=== PATIENT | male | born 1965 | race African-American/Black ===

== ENCOUNTER → 2021-02-22 | Outpatient (CLI) | payer OTHER ==
[~2021-02-22] MED LIST: CHLORTHALIDONE25 MG PO; ERTAPENEM1 GM IV; HUMIRA CRO40 MG/0.8 SUBQ; VANC750 IV
[2021-02-22 11:15] VITALS: BP 138/87
[2021-02-22 11:31] VITALS: BP 138/87
--- NOTE | 2021-02-22 11:34 | NUR ---
HERE FOR PICC LINE DRESSING CHANGE ONLY. TRANSITIONING FROM [facility] TO [facility] FOR PICC BEEF PLUCK TRIMMER AND LABS. NO LABS NEEDED TODAY PER DR. FERNANDEZ--DONE IN HIS OFFICE THIS WEEK. PT LOOKS WELL, REPORTS FEELING WELL. DENIES N/V/DIARRHEA OR ANY CONCERNS. SLIGHT SWELLING NOTED RIGHT HAND, LIMITED ABILITY TO BEND RIGHT INDEX FINGER. BANDAGE ON FINGERTIP D/I. PT SEEING HIS HAND DOCTOR ON THURSDAY OF NEXT WEEK AND DR. FERNANDEZ ON THU. SCHEDULED PT TO RETURN HERE AGAIN ON SO LABS CAN BE DRAWN PRIOR TO THOSE APPTS. PT IS HOLDING HIS HUMIRA WHILE CLEARING THIS INFECTION. ANTIICPATED LENGTH OF ANTIBIOTIC TREATMENT IS 6 WEEKS PER PT. ENCOURAGED PT TO LET DR. DUNN (GI DOC ORDERING HUMIRA) ABOUT HIS CURRENT CONDITION.
== END ==
LOC: LAB 10:07 → OPONC 10:07
PROVIDERS: ATTEND Specialist
DX: M25.441 Effusion, right hand (principal)
CPT/HCPCS: 91024

== ENCOUNTER → 2021-02-26 | Outpatient (CLI) | payer OTHER ==
[2021-02-26 10:46] LABS: ABSOLUTE NEUTROPHILS 3.9 thou/uL (1.4-8.2); BASOPHILS 1.3 % (0.0-2.0); EOSINOPHILS 3.6 % (0.0-3.0); HEMATOCRIT 34.2 % (42.0-52.0); HEMOGLOBIN 11.2 gm/dL (14.0-18.0); LYMPHOCYTES 29.8 % (24.0-44.0); MCH 27.7 pg (26.0-34.0); MCHC 32.7 g/dL (28.0-37.0); MCV 84.8 fL (80.0-100.0); MONOCYTES 9.9 % (1.0-8.0); PLATELET COUNT 222 thou/uL (150-400); POLYS 55.4 % (36.0-66.0); RBC 4.03 mil/uL (4.50-6.00)
--- NOTE | 2021-02-26 11:02 | NUR ---
PT HERE FOR WEEKLY PICC DRESSING CHANGE AND LAB DRAW. LEONOR PICC LINE FLUSHES AND ASPIRATES WELL. LABS DRAWN AND AWAITING RESULTS. WILL FAX TO [facility], AND SHAUN WHEN RESULTED. PICC DRESSING CHANGED PER PROTOCOL WITH NO COMPLICATIONS. PT SCHEDULED TO RETURN NEXT WEEK. LEFT UNIT IN STABLE CONDITION.
[2021-02-26 11:07] LABS: ALBUMIN 3.7 g/dL (3.4-5.0); CALCIUM 9.1 mg/dL (8.5-10.1); CREATININE 1.3 mg/dL (0.7-1.3); POTASSIUM 3.8 mmol/L (3.5-5.1); TOTAL BILIRUBIN 0.6 mg/dL (0.2-1.0); TOTAL PROTEIN 8.5 g/dL (6.4-8.2)
== END ==
LOC: OPONC 09:00
PROVIDERS: ATTEND Specialist
DX: M86.8X4 Other osteomyelitis, hand (principal)

== ENCOUNTER → 2021-03-05 | Outpatient (CLI) | payer OTHER ==
[2021-03-05 11:16] LABS: ABSOLUTE NEUTROPHILS 3.4 thou/uL (1.4-8.2); BASOPHILS 1.2 % (0.0-2.0); HEMATOCRIT 34.3 % (42.0-52.0); HEMOGLOBIN 10.8 gm/dL (14.0-18.0); LYMPHOCYTES 27.7 % (24.0-44.0); MCH 27.4 pg (26.0-34.0); MCHC 31.6 g/dL (28.0-37.0); MCV 86.7 fL (80.0-100.0); MONOCYTES 10.4 % (1.0-8.0); PLATELET COUNT 188 thou/uL (150-400); POLYS 55.7 % (36.0-66.0); RBC 3.96 mil/uL (4.50-6.00); RDW 14.9 % (10.5-14.5); WBC 6.2 thou/uL (4.0-11.0)
[2021-03-05 11:24] LABS: ALBUMIN 3.6 g/dL (3.4-5.0); CALCIUM 9.3 mg/dL (8.5-10.1); CREATININE 1.3 mg/dL (0.7-1.3); POTASSIUM 3.6 mmol/L (3.5-5.1); TOTAL BILIRUBIN 0.6 mg/dL (0.2-1.0); TOTAL PROTEIN 8.2 g/dL (6.4-8.2)
== END ==
LOC: OPONC 13:14
PROVIDERS: ATTEND Specialist
DX: M86.8X4 Other osteomyelitis, hand (principal)

== ENCOUNTER → 2021-03-12 | Outpatient (CLI) | payer OTHER ==
[2021-03-12 10:53] LABS: ABSOLUTE NEUTROPHILS 3.3 thou/uL (1.4-8.2); BASOPHILS 1.1 % (0.0-2.0); EOSINOPHILS 3.9 % (0.0-3.0); HEMATOCRIT 33.3 % (42.0-52.0); HEMOGLOBIN 10.5 gm/dL (14.0-18.0); LYMPHOCYTES 27.3 % (24.0-44.0); MCH 27.4 pg (26.0-34.0); MCHC 31.5 g/dL (28.0-37.0); MCV 87.1 fL (80.0-100.0); MONOCYTES 9.9 % (1.0-8.0); PLATELET COUNT 170 thou/uL (150-400); POLYS 57.8 % (36.0-66.0); RBC 3.83 mil/uL (4.50-6.00); RDW 14.8 % (10.5-14.5); WBC 5.7 thou/uL (4.0-11.0)
[2021-03-12 11:09] LABS: ALBUMIN 3.4 g/dL (3.4-5.0); CALCIUM 8.9 mg/dL (8.5-10.1); CREATININE 1.1 mg/dL (0.7-1.3); POTASSIUM 3.5 mmol/L (3.5-5.1); TOTAL BILIRUBIN 0.5 mg/dL (0.2-1.0); TOTAL PROTEIN 7.9 g/dL (6.4-8.2)
--- NOTE | 2021-03-12 17:38 | NUR ---
PT IN FOR WEEKLY PICC LINE DRESSING CHANGE AND LABS. REPORTS DOING VERY WELL, FEELING WELL. RIGHT INDEX FINGER SLIGHTLY SWOLLEN AND STIFF BUT ABLE TO MOVE. STATES HOME INFUSIONS ARE GOING WELL. PT WILL F/U WITH DR. FERNANDEZ ON THU OF THIS WEEK AND HOPES TO COMPLETE THERAPY THIS WEEK. DISMISSED IN STABLE CONDITION. WILL NEED TO CALL PT TO SET UP NEXT APPT IF DR. FERNANDEZ DOES NOT STOP THERAPY.
== END ==
LOC: OPONC 13:57
PROVIDERS: ATTEND Specialist
DX: M86.8X4 Other osteomyelitis, hand (principal)